=== PATIENT | male | born 1995 | race Caucasian/White ===

== ENCOUNTER 2025-01-22 19:40 | Emergency (ER) | payer OTHER ==
--- NOTE | 2025-01-22 20:25 | ED ---
Fall HPI - General Chief Complaint: Fall Stated Complaint: right leg and right arm laceration Time Seen by Provider: 01/22/25 19:55 Source: patient, RN notes reviewed Mode of arrival: ambulatory - History of Present Illness Initial Comments: 29-year-old male presents emergency room complaints of laceration to his right anterior luke, right palm, and right elbow. States that he was playing football with friends when he went to catch the football falling. Patient denies hitting his head or loss of consciousness. Patient states that he is able to ambulate since the fall. Last tetanus vaccination was within the last 5 years. No other acute complaints at this time. - Related Data Previous Rx's Medication Instructions Recorded predniSONE [Deltasone] 20 mg PO DAILY #7 tab 01/20/25 Allergies Allergy/AdvReac Type Severity Reaction Status Date / Time No Known Allergies Allergy Verified 01/22/25 19:49 Review of Systems ROS Statement: Those systems with pertinent positive or pertinent negative responses have been documented in the HPI. ROS Other: All systems not noted in ROS Statement are negative. Past Medical History Past Medical History: Asthma Additional Past Medical History / Comment(s): crohn's Past Surgical History: Orthopedic Surgery Past Psychological History: ADD/ADHD, Anxiety Smoking Status: Current every day smoker Past Alcohol Use History: Daily Past Drug Use History: Heroin, IV Drug Use, Opiates, Prescription Drug Abuse General Exam Limitations: no limitations General appearance: alert, in no apparent distress Neck exam: Present: normal inspection. Absent: tenderness, meningismus, lymphadenopathy Respiratory exam: Present: normal lung sounds bilaterally. Absent: respiratory distress, wheezes, rales, rhonchi, stridor Cardiovascular Exam: Present: regular rate, normal rhythm, normal heart sounds. Absent: systolic murmur, diastolic murmur, rubs, gallop, clicks GI/Abdominal exam: Present: soft, normal bowel sounds. Absent: distended, tenderness, guarding, rebound, rigid Right Elbow exam: Present: laceration Hand Wrist exam: Present: laceration Right Lower Leg exam: Present: tenderness, laceration (anterior luke, 1.5 cm, no active bleeding) Course Vital Signs 01/22/25 01/22/25 19:48 20:46 Temperature 97.9 F 98.0 F Pulse Rate 107 H 98 Respiratory 18 16 Rate Blood Pressure 121/85 106/72 O2 Sat by Pulse 97 99 Oximetry Medical Decision Making - Medical Decision Making Was pt. sent in by a medical professional or institution (, PA, SEMICONDUCTOR ASSEMBLER, urgent care, hospital, or snf...) When possible be specific @ -No Did you speak to anyone other than the patient for history (EMS, parent, family, police, friend...)? What history was obtained from this source @ -No Did you review nursing and triage notes (agree or disagree)? Why? @ -I reviewed and agree with nursing and triage notes Were old charts reviewed (outside hosp., previous admission, EMS record, old EKG, old radiological studies, urgent care reports/EKG's, snf records)? Report findings @ -No old charts were reviewed Differential Diagnosis (chest pain, altered mental status, abdominal pain women, abdominal pain men, vaginal bleeding, weakness, fever, dyspnea, syncope, headache, dizziness, GI bleed, back pain, seizure, CVA, palpatations, mental health, musculoskeletal)? @ -Laceration, skin avulsion, contusion, hematoma, this list is not all inclusive EKG interpreted by me (3pts min.). @ -None X-rays interpreted by me (1pt min.). @ -None done CT interpreted by me (1pt min.). @ -None done U/S interpreted by me (1pt. min.). @ -None done What testing was considered but not performed or refused? (CT, X-rays, U/S, labs)? Why? @ -X-ray imaging was considered but deferred as patient is able to ambulate there is minimal clinical concern for fractures of the wrist, leg, or elbow. Patient interviewed with differing x-ray ridging. What meds were considered but not given or refused? Why? @ -None Did you discuss the management of the patient with other professionals (professionals i.e. , [facility], SEMICONDUCTOR ASSEMBLER, lab, RT, psych nurse, neonatal social worker, sewing machine operator zipper, teacher, staff antisubmarine officer, briefcase sewer)? Give summary @ -No Was smoking cessation discussed for >3mins.? @ -No Was critical care preformed (if so, how long)? @ -No Were there social determinants of health that impacted care today? How? (Homelessness, low income, unemployed, alcoholism, drug addiction, transportation, low edu. Level, literacy, decrease access to med. care, skilled nursing, rehab)? @ -No Was there de-escalation of care discussed even if they declined (Discuss DNR or withdrawal of care, Hospice)? DNR status @ -No What co-morbidities impacted this encounter? (DM, HTN, Smoking, COPD, CAD, Cancer, CVA, ARF, Chemo, Hep., AIDS, mental health diagnosis, sleep apnea, morbid obesity)? @ -None Was patient admitted / discharged? Hospital course, mention meds given and route, prescriptions, significant lab abnormalities, going to OR and other pertinent info. @ -Discharge. 29-year male presenting with lacerations to the right anterior luke, right elbow, right palm. There are no noted deformities on examination with no active bleeding. There are multiple skin abrasions that are cleansed with Betadine solution with topical bacitracin applied over top. Wound care discussed at bedside. Case discussed with Dr. Barraza Undiagnosed new problem with uncertain prognosis? @ -No Drug Therapy requiring intensive monitoring for toxicity (Heparin, Nitro, Insulin, Cardizem)? @ -No Were any procedures done? @ -No Diagnosis/symptom? @ -Laceration/skin avulsion Acute, or Chronic, or Acute on Chronic? @ -Acute Uncomplicated (without systemic symptoms) or Complicated (systemic symptoms)? @ -Uncomplicated Side effects of treatment? @ -No Exacerbation, Progression, or Severe Exacerbation? @ -No Poses a threat to life or bodily function? How? (Chest pain, [place], [place], pneumonia, PE, COPD, DKA, ARF, appy, cholecystitis, CVA, Diverticulitis, Homicidal, Suicidal, threat to staff... and all critical care pts) @ -No Disposition Clinical Impression: Fall, Laceration of luke Disposition: HOME SELF-CARE Condition: Stable Instructions (If sedation given, give patient instructions): Laceration (ED) Additional Instructions: Please return to the Emergency Department if symptoms worsen or any other concerns. Is patient prescribed a controlled substance at d/c from ED?: No Referrals: [facility] [NON-STAFF] - 1-2 days (Contact a primary care office to become established with a provider. ) [facility] [NON-STAFF] - 1-2 days None,Stated [Primary Care Provider] - 1-2 days Forms: Area PCPs Time of Disposition: 20:42
[2025-01-22] MEDS: BACITRACIN OINT 1 EACH PACKET TOPICAL ONE (20:37)
[2025-01-22 20:49] VITALS: BP 106/72; PULSE 98; RESP 16; TEMP 98
== END 2025-01-22 20:53 | disposition home or self-care (01) ==
LOC: EC 19:40
DX: S81.811A Laceration without foreign body, right lower leg, initial encounter (principal); S51.011A Laceration without foreign body of right elbow, initial encounter; S61.511A Laceration without foreign body of right wrist, initial encounter; S61.411A Laceration without foreign body of right hand, initial encounter; F17.200 Nicotine dependence, unspecified, uncomplicated; W19.XXXA Unspecified fall, initial encounter; Y93.61 Activity, american tackle football
CPT/HCPCS: 99283